=== PATIENT | female | born 1965 | race Caucasian/White ===

== ENCOUNTER 2020-04-23 06:13 | Emergency (ER) | payer OTHER ==
[2020-04-23] MEDS ORDERED: Ondansetron 4 MG/2 ML SDV IVPUSH ONE ×2 (06:55→10:21)
[2020-04-23] MEDS ORDERED: fentaNYL 100 MCG/2 ML SDV IVPUSH ONE (06:55)
[2020-04-23] MEDS ORDERED: Sodium Chloride 0.9% 1,000 ML IV ONE (06:55)
--- NOTE | 2020-04-23 07:04 | EDM.PDOC ---
<Brain Wolff - Last Filed: 04/23/20 06:54> ED HPI GENERAL MEDICAL PROBLEM - General Chief Complaint: Abdominal Pain Stated Complaint: ABDOMINAL PAIN VOMITING Time Seen by Provider: 04/23/20 06:44 - History of Present Illness INITIAL COMMENTS - FREE TEXT/NARRATIVE: 54-year-old female presents to the emergency room with abdominal pain. Patient developed severe nausea vomiting and abdominal discomfort over the last 10 hours or so. The patient does have an underlying history of Crohn's disease which usually does not cause nausea or vomiting for just lots of diarrhea. Her Crohn's has been doing fairly well she is on Humira. She is not eaten anything that she thought might of been suspect. The other people camping with her have eaten the same food and nobody else has become ill. Not aware of any fevers or chills. Prior to this she has been having several loose stools a day this is typical for her with her Crohn's. She is vomited multiple times through the evening but now is just bringing up small amounts of bilious material. Epigastric Pain Score (Numeric/FACES): 10 - Related Data Allergies Allergy/AdvReac Type Severity Reaction Status Date / Time codeine Allergy Cannot Verified 04/23/20 06:24 Remember Sulfa (Sulfonamide Allergy Cannot Verified 04/23/20 06:24 Antibiotics) Remember Home Meds: Home Meds Adalimumab [Humira] 1 dose INJECT ASDIRECTED 04/23/20 [History] Omeprazole Magnesium [Prilosec Otc] 20 mg PO DAILY 04/23/20 [History] Past Medical History Gastrointestinal History: Reports: Other (See Below) Other Gastrointestinal History: Crohn's disease - Past Surgical History GI Surgical History: Reports: Other (See Below) Other GI Surgeries/Procedures: bowel resection Social & Family History - Tobacco Use Smoking Status *Q: Never Smoker Second Hand Smoke Exposure: No - Caffeine Use Caffeine Use: Reports: Coffee - Recreational Drug Use Recreational Drug Use: No ED ROS GENERAL - Review of Systems Review Of Systems: See Below Constitutional: Reports: No Symptoms HEENT: Reports: No Symptoms Respiratory: Reports: No Symptoms Cardiovascular: Reports: No Symptoms GI/Abdominal: Reports: Abdominal Pain, Diarrhea, Nausea, Vomiting ED EXAM, GI/ABD - Physical Exam Exam: See Below Exam Limited By: No Limitations General Appearance: Alert, No Apparent Distress Head: Atraumatic, Normocephalic Neck: Normal Inspection, Supple, Non-Tender, Full Range of Motion. No: Lymphadenopathy (L), Lymphadenopathy (R) Respiratory/Chest: No Respiratory Distress, Lungs Clear, Normal Breath Sounds Cardiovascular: Regular Rate, Rhythm, No Edema, No Murmur GI/Abdominal Exam: Normal Bowel Sounds, Soft, Other (She has diffuse tenderness with palpation no localizing symptoms no rigidity rebound or guarding) Back Exam: Normal Inspection. No: CVA Tenderness (L), CVA Tenderness (R) Neurological: Alert, Oriented, Normal Cognition Departure - Departure Disposition: Home, Self-Care 01 Clinical Impression: Small bowel obstruction, History of Crohn's disease - Discharge Information Instructions: Bowel Obstruction, [id number] Referrals: PCP,Not In Area [Primary Care Provider] - Forms: ED Department Discharge Additional Instructions: Evaluation in the emergency room this morning in regards to development of diffuse abdominal pain with nausea and vomiting. History of Crohn's disease which has been relatively well controlled with Humira for the last 10 years. Test revealed a mildly elevated white blood cell count with a left shift. No major electrolyte abnormalities or abnormalities of the kidneys or liver were identified. There was some evidence of volume depletion and this is secondary to fluid accumulation within the bowel and the abdominal cavity. X-ray of the abdomen showed 1 dilated loop of small bowel in the left upper quadrant or mid abdomen suggestive of an ileus. CT of the abdomen was performed with oral and IV contrast and reveals evidence of small bowel obstruction with termination of the dilated bowel in the right lower quadrant at site of previous surgery. It is possible that the [place] muscles where the bowel was re-joint back together has narrowed enough to cause small bowel obstruction development. It is more likely to be due to internal scars called adhesions to have caused this problem. Decision has been made to travel back to [facility] where you were from for definitive medical care versus being admitted to a larger center such as [facility] for care at this time. Suggest only ice chips along the way nothing to eat or drink otherwise. Zofran 4 mg under the tongue every 4 hours as needed for relief of nausea or vomiting. Percocet tabs 5/325 mg 1 or 2 tablets with Zofran under the tongue 15 minutes prior to prevent vomiting from the pain pills. May take with a sip of water or ice chips. Just traveling to hospital in [facility] as soon as you reach that destination for planned admission to the hospital due to small bowel obstruction. Of course if things get out of control in route you can stop at 1 of the major cities such as [facility] or [place] for definitive treatment if necessary. Sepsis Event Note (ED) - Evaluation Sepsis Screening Result: No Definite Risk <Michael Duarte - Last Filed: 04/23/20 10:35> ED HPI GENERAL MEDICAL PROBLEM - History of Present Illness Onset: Gradual Onset Date: 04/22/20 Onset Time: 18:00 Duration: Hour(s):, Getting Worse Location: Reports: Abdomen (Abdominal pain primarily supraumbilical but pressure along the lower abdomen as well. Pain has a very strong colicky component.) Quality: Reports: Ache, Sharp, Stabbing Severity: Moderate (Sharp and stabbing colicky abdominal pain) Improves with: Reports: None ( at a 10) Worsens with: Reports: None Associated Symptoms: Reports: Fever/Chills, Loss of Appetite, Nausea/Vomiting (Chills but no fever). 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 They reside in [facility] [place] - Vital Signs Last Recorded V/S: Last Vital Signs Temp 36.2 C 04/23/20 06:21 Pulse 77 04/23/20 06:21 Resp 18 04/23/20 06:21 BP 145/93 H 04/23/20 06:21 Pulse Ox 99 04/23/20 06:21 - Orders/Labs/Meds Orders: Active Orders 24 hr Category Date Time Status CORONAVIRUS COVID-19 PCR [facility] Stat Lab 04/23/20 08:30 Received Dextrose 5%-Lactated Ringers 1,000 ml Med 04/23/20 08:15 Active IV ASDIRECTED Sodium Chloride 0.9% [Saline Flush] Med 04/23/20 08:49 Active 10 ml FLUSH ONETIME PRN Medication Orders Dextrose/Lactated Ringer's (Dextrose 5%-Lactated Ringers) 1,000 mls @ 150 mls/hr IV ASDIRECTED LAURA Last Admin: 04/23/20 08:36 Dose: 150 mls/hr Documented by: LU Sodium Chloride (Saline Flush) 10 ml FLUSH ONETIME PRN PRN Reason: IV FLUSH Last Admin: 04/23/20 09:52 Dose: 10 ml Documented by: AUGUSTO Labs: Laboratory Tests 04/23/20 04/23/20 04/23/20 Range/Units 06:45 06:45 06:45 WBC 11.41 H (3.98-10.04) K/mm3 RBC 5.24 H (3.98-5.22) M/mm3 Hgb 16.0 H (11.2-15.7) gm/dl Hct 48.3 H (34.1-44.9) % MCV 92.2 (79.4-94.8) fl MCH 30.5 (25.6-32.2) pg MCHC 33.1 (32.2-35.5) g/dl RDW Std Deviation 45.3 (36.4-46.3) fL Plt Count 295 (182-369) K/mm3 MPV 10.0 (9.4-12.3) fl Neut % (Auto) 91.0 H (34.0-71.1) % Lymph % (Auto) 6.6 L (19.3-51.7) % [place] % (Auto) 2.1 L (4.7-12.5) % Eos % (Auto) 0 L (0.7-5.8) Baso % (Auto) 0.2 (0.1-1.2) % Neut # (Auto) 10.39 H (1.56-6.13) K/mm3 Lymph # (Auto) 0.75 L (1.18-3.74) K/mm3 [place] # (Auto) 0.24 (0.24-0.36) K/mm3 Eos # (Auto) 0.00 L (0.04-0.36) K/mm3 Baso # (Auto) 0.02 (0.01-0.08) K/mm3 Manual Slide Review Abnormal smear ESR (0-20) mm/hr Sodium 142 (136-145) mEq/L Potassium 3.9 (3.5-5.1) mEq/L Chloride 104 (98-107) mEq/L Carbon Dioxide 25 (21-32) mEq/L Anion Gap 16.9 H (5-15) BUN 14 (7-18) mg/dL Creatinine 1.0 (0.55-1.02) mg/dL Est Cr Clr Drug Dosing 58.90 mL/min Estimated GFR (MDRD) 58 (>60) mL/min BUN/Creatinine Ratio 14.0 (14-18) Glucose 128 H (74-106) mg/dL Calcium 9.9 (8.5-10.1) mg/dL Total Bilirubin 0.5 (0.2-1.0) mg/dL AST 22 (15-37) U/L ALT 30 (14-59) U/L Alkaline Phosphatase 108 (46-116) U/L C-Reactive Protein (<1.0) mg/dL Total Protein 9.1 H (6.4-8.2) g/dl Albumin 4.6 (3.4-5.0) g/dl Globulin 4.5 gm/dL Albumin/Globulin Ratio 1.0 (1-2) Lipase 151 (73-393) U/L Urine Color Yellow (Yellow) Urine Appearance Slt cloudy H (Clear) Urine pH 5.5 (5.0-8.0) Ur Specific [place] > or = 1.030 (1.005-1.030) Urine Protein 1+ H (Negative) Urine Glucose (UA) Negative (Negative) Urine Ketones 2+ H (Negative) Urine Occult Blood 1+ H (Negative) Urine Nitrite Negative (Negative) Urine Bilirubin 1+ H (Negative) Urine Urobilinogen 0.2 (0.2-1.0) Ur Leukocyte Esterase Negative (Negative) Urine RBC 5-10 H (0-5) /hpf Urine WBC 0-5 (0-5) /hpf Ur Squamous Epith Cells 5-10 H (0-5) /hpf Amorphous Sediment Many H (NOT SEEN) /hpf Urine Bacteria Few (FEW) /hpf Urine Mucus Rare (FEW) /hpf 04/23/20 04/23/20 Range/Units 06:45 06:45 WBC (3.98-10.04) K/mm3 RBC (3.98-5.22) M/mm3 Hgb (11.2-15.7) gm/dl Hct (34.1-44.9) % MCV (79.4-94.8) fl MCH (25.6-32.2) pg MCHC (32.2-35.5) g/dl RDW Std Deviation (36.4-46.3) fL Plt Count (182-369) K/mm3 MPV (9.4-12.3) fl Neut % (Auto) (34.0-71.1) % Lymph % (Auto) (19.3-51.7) % [place] % (Auto) (4.7-12.5) % Eos % (Auto) (0.7-5.8) Baso % (Auto) (0.1-1.2) % Neut # (Auto) (1.56-6.13) K/mm3 Lymph # (Auto) (1.18-3.74) K/mm3 [place] # (Auto) (0.24-0.36) K/mm3 Eos # (Auto) (0.04-0.36) K/mm3 Baso # (Auto) (0.01-0.08) K/mm3 Manual Slide Review ESR 3 (0-20) mm/hr Sodium (136-145) mEq/L Potassium (3.5-5.1) mEq/L Chloride (98-107) mEq/L Carbon Dioxide (21-32) mEq/L Anion Gap (5-15) BUN (7-18) mg/dL Creatinine (0.55-1.02) mg/dL Est Cr Clr Drug Dosing mL/min Estimated GFR (MDRD) (>60) mL/min BUN/Creatinine Ratio (14-18) Glucose (74-106) mg/dL Calcium (8.5-10.1) mg/dL Total Bilirubin (0.2-1.0) mg/dL AST (15-37) U/L ALT (14-59) U/L Alkaline Phosphatase (46-116) U/L C-Reactive Protein 0.4 (<1.0) mg/dL Total Protein (6.4-8.2) g/dl Albumin (3.4-5.0) g/dl Globulin gm/dL Albumin/Globulin Ratio (1-2) Lipase (73-393) U/L Urine Color (Yellow) Urine Appearance (Clear) Urine pH (5.0-8.0) Ur Specific [place] (1.005-1.030) Urine Protein (Negative) Urine Glucose (UA) (Negative) Urine Ketones (Negative) Urine Occult Blood (Negative) Urine Nitrite (Negative) Urine Bilirubin (Negative) Urine Urobilinogen (0.2-1.0) Ur Leukocyte Esterase (Negative) Urine RBC (0-5) /hpf Urine WBC (0-5) /hpf Ur Squamous Epith Cells (0-5) /hpf Amorphous Sediment (NOT SEEN) /hpf Urine Bacteria (FEW) /hpf Urine Mucus (FEW) /hpf Meds: Medications Generic Name Dose Route Start Last Admin Trade Name Freq PRN Reason Stop Dose Admin Dextrose/Lactated Ringer's 1,000 mls @ 150 mls/hr 04/23/20 08:15 04/23/20 08:36 Dextrose 5%-Lactated Ringers IV 150 mls/hr ASDIRECTED LAURA Administration Sodium Chloride 10 ml 04/23/20 08:49 04/23/20 09:52 Saline Flush FLUSH 10 ml ONETIME PRN Administration IV FLUSH Discontinued Medications Generic Name Dose Route Start Last Admin Trade Name Freq PRN Reason Stop Dose Admin Diatrizoate Meglum/Diatrizoate Sod 120 ml 04/23/20 08:49 04/23/20 09:52 Gastrografin 37% PO 04/23/20 08:50 45 ml ONETIME ONE Administration Diphenhydramine HCl 12.5 mg 04/23/20 09:32 04/23/20 09:39 Benadryl IVPUSH 04/23/20 09:33 12.5 mg ONETIME ONE Administration Fentanyl 50 mcg 04/23/20 06:55 04/23/20 07:06 Sublimaze IVPUSH 04/23/20 06:56 50 mcg ONETIME ONE Administration Hydromorphone HCl 0.5 mg 04/23/20 07:42 04/23/20 07:51 Dilaudid IVPUSH 04/23/20 07:43 0.5 mg ONETIME ONE Administration Hydromorphone HCl 0.5 mg 04/23/20 10:21 Dilaudid IVPUSH 04/23/20 10:22 ONETIME ONE Sodium Chloride 1,000 mls @ 999 mls/hr 04/23/20 06:55 04/23/20 07:05 Normal Saline IV 04/23/20 07:55 999 mls/hr ONETIME ONE Administration Iopamidol 100 ml 04/23/20 08:49 04/23/20 09:52 Isovue-300 (61%) IVPUSH 04/23/20 08:50 100 ml ONETIME ONE Administration Metoclopramide HCl 7.5 mg 04/23/20 09:32 04/23/20 09:39 Reglan IVPUSH 04/23/20 09:33 7.5 mg ONETIME ONE Administration Ondansetron HCl 4 mg 04/23/20 06:55 04/23/20 07:05 Zofran IVPUSH 04/23/20 06:56 4 mg ONETIME ONE Administration Ondansetron HCl 4 mg 04/23/20 10:21 04/23/20 10:31 Zofran IVPUSH 04/23/20 10:22 4 mg ONETIME ONE Administration - Radiology Interpretation Free Text/Narrative:: 54-year-old female presents to the ED with diffuse upper abdominal pain although she has generalized abdominal pain most of the pain is supraumbilical. She reports pain comes in waves I strong colicky component to the pain. Associated intractable nausea and vomiting of bilious material. Her bowel movements have been more formed up the last 2 weeks prior to that for the last month they have been quite loose and diarrhea. No blood noted. She was diagnosed with Crohn's disease about 10 years ago although she believes she had the disease process for a good 5 or 6 years before diagnosis was made. She has had partial small bowel resection she believes 18 inches of her ileum was removed. She has not had a colostomy. No recent changes in any medications. She has been on Humira subcutaneous injections for greater than 5 years with fairly good relief of her symptoms. Associated chills but no defined fever.She does not drink alcohol. Care assumed from Dr. Wolff at change of shift. Still having a good deal of upper abdominal pain which comes in a colicky fashion. Labs are pending. Plan KUB to be done. Given Dilaudid 0.5 mg IV for further pain relief. Will likely require CT of the abdomen with oral contrast. - Re-Assessments/Exams Free Text/Narrative Re-Assessment/Exam: 04/23/20 07:47 White count is mildly elevated at 11.41. Differential is 91% neutrophils. Hemoglobin is 16.0 with hematocrit of 48.3 suggesting some degree of hemoconcentration. Platelet count is 295,000. The micro does not show any bands cells. Sodium 142 with a potassium of 3.9. Chloride 104 with a bicarb of 25. Anion gap is elevated at 16.9. BUN is 14 with a creatinine of 1.0. Glucose 128. Calcium 9.9 liver function is normal. Total protein is elevated at 9.1 albumin fraction is 4.6. Lipase is normal at 151. Urinalysis shows slightly cloudy urine with 1+ proteinuria and 2+ ketones. 1+ occult blood. 1+ bilirubin. There are 5-10 RBCs per high-power field no white cells identified 5-10 squamous epithelial cells and many amorphous sediment 04/23/20 08:20 KUB reveals a solitary minimally dilated loop of small bowel left upper quadrant. This may be related to possible developing ileus due to underlying inflammatory process. No air-fluid levels to suggest obstruction. There is increased stool in the cecum and distal portion of the right hemicolon. She has an IUD placed in her uterus. Its of previous abdominal surgery with surgical clips right lower quadrant . 04/23/20 08:35 patient believes she will be able to keep down some contrast and is willing to give it a try. We will try and perform CT of the abdomen and pelvis with oral and IV contrast. 04/23/20 09:33 patient is having more nausea since ingesting oral contrast material. We will give her Zofran 7.5 mg IV with Benadryl 12.5 mg IV to prevent any dystonic reaction with the Zofran she had received previous. 04/23/20 10:21 CT of the abdomen and pelvis has been completed. Small low- density lesion is noted anteriorly within the right lobe of the liver which most likely represents a small liver cyst measuring 1.0 cm in size. Small higher hiatal hernia is appreciated. Spleen appears to be normal. Pancreas shows no discrete abnormalities. Adrenal glands show no nodules. Gallbladder contains no calcified gallstones. Kidneys show symmetric contrast enhancement without hydronephrosis or mass. Mid and distal small bowel is dilated and contains fluid. Stool is noted within the terminal ileum. Previous surgery noted at the ileocecal junction. There may be a focal area of narrowing at the anastomotic site causing the small bowel dilatation as well as the fecal containing terminal ileum. Small amount of fluid is seen within the pelvis as well as around the liver and spleen which mos t likely is reactive from the small bowel dilatation or due to adnexal or ovarian cyst rupture. Incidental IUD noted within the uterus. Delayed images show contrast within the distal ureters as well as contrast within the bladder. I have discussed the findings of the CT which confirm developing small bowel obstruction with numerous dilated loops of small bowel down into the pelvis where appears to terminate. It is most likely obstructed due to adhesions from previous small bowel resection. There is no obvious thickening of the wall of the small bowel to suggest inflammation related to Crohn's disease. After discussion with both her and her they opted to travel back to [facility] which is an [address] and be hospitalized there versus being admitted to [facility] for care. If things worsen along the way they can of course stop and the larger center to be admitted. Copy of the CT will be placed on CD ROM. Copies of chart notes and labs will be sent with the patient. [employer] machine utilized for Zofran sublingual 4 mg every 4 hours as necessary and she may use ice chips only. Percocet tabs 5 325 mg 1 or 2 every 4-6 hours necessary for pain relief if they will stay down. Departure - Departure Time of Disposition: 10:25 Condition: Fair - Discharge Information *PRESCRIPTION DRUG MONITORING PROGRAM REVIEWED*: Not Applicable *COPY OF PRESCRIPTION DRUG MONITORING REPORT IN PATIENT WENDY: Not Applicable Sepsis Event Note (ED) - Focused Exam Vital Signs: Vital Signs Temp Pulse Resp BP Pulse Ox 04/23/20 06:21 36.2 C 77 18 145/93 H 99 - My Orders Last 24 Hours: My Active Orders 04/23/20 08:15 Dextrose 5%-Lactated Ringers 1,000 ml IV ASDIRECTED 04/23/20 08:30 CORONAVIRUS COVID-19 PCR PHL Stat 04/23/20 08:49 Sodium Chloride 0.9% [Saline Flush] 10 ml FLUSH ONETIME PRN - Assessment/Plan Last 24 Hours: My Active Orders 04/23/20 08:15 Dextrose 5%-Lactated Ringers 1,000 ml IV ASDIRECTED 04/23/20 08:30 CORONAVIRUS COVID-19 PCR PHL Stat 04/23/20 08:49 Sodium Chloride 0.9% [Saline Flush] 10 ml FLUSH ONETIME PRN
[2020-04-23] MEDS ORDERED: HYDROmorphone 0.5 MG/0.5 ML Syringe IVPUSH ONE ×2 (07:42→10:21)
[2020-04-23] MEDS ORDERED: Dextrose 5%-Lactated Ringers 1,000 ML IV SCH (08:15)
[2020-04-23] MEDS ORDERED: Iopamidol 612 MG/ML 100 ML Bottle IVPUSH ONE (08:49)
[2020-04-23] MEDS ORDERED: Diatrizoate Meglumine/Diatrizoate Sodium 37% 120 ML Bottle PO ONE (08:49)
[2020-04-23] MEDS ORDERED: Sodium Chloride 0.9% 10 ML Syringe FLUSH PRN (08:49)
--- NOTE | 2020-04-23 08:50 | CR ---
Abdomen: Supine view of the abdomen was obtained. Comparison: No previous study. Single slightly prominent loop of small bowel is noted which may relate to a localized ileus. Surgical material is seen within the right abdomen. IUD is noted within the pelvis. Bony structures are unremarkable. Impression: 1. Single slightly prominent loop of small bowel possibly relating to localized ileus from underlying inflammatory process. 2. Previous abdominal surgery and IUD. 3. No additional abnormality is seen. Diagnostic code #3 This report was dictated in MDT
[2020-04-23] MEDS ORDERED: Metoclopramide 10 MG/2 ML SDV IVPUSH ONE (09:32)
[2020-04-23] MEDS ORDERED: diphenhydrAMINE 50 MG/ML SDV IVPUSH ONE (09:32)
--- NOTE | 2020-04-23 10:22 | CT ---
CT abdomen and pelvis Technique: Multiple axial sections were obtained from above the dome of the diaphragm inferiorly through the pubic symphysis. Intravenous contrast was utilized. No oral contrast has been given. Delayed images were obtained through the pelvis. Comparison: Prior abdominal x-ray performed earlier on the same day (7:57 AM). Findings: Visualized lung bases show nothing acute. Small low-density lesion is noted anteriorly within the right lobe of the liver which most likely represents a small liver cyst measuring 1.0 cm in size. No additional abnormality is appreciated within the liver. Small hiatal hernia is noted. Spleen appears within normal limits. Pancreas shows no discrete abnormality. Adrenal glands contain no nodule. Gallbladder contains no calcified gallstones. Kidneys show symmetric contrast enhancement without hydronephrosis or mass. Mid and distal small bowel is dilated and contains fluid. Stool is noted within the terminal ileum. Previous surgery noted at the ileocecal junction. There may be a focal area of narrowing at the anastomotic site causing the small bowel dilatation as well as the fecal-containing terminal ileum. Small amount of fluid is seen within the pelvis as well as around the liver and spleen which most likely is reactive from the small bowel dilatation or due to adnexal or ovarian cyst rupture. No free fluid or inflammatory change is appreciated. Bone window settings were reviewed which show no acute osseous finding. Delayed images show contrast within the distal ureters as well as contrast within the bladder. Incidental IUD noted within the uterus. Impression: 1. Mid and distal small bowel dilatation with stool seen within the distal terminal ileum. These findings may relate to an area of stenosis at the ileocecal junction an area of prior surgery. Findings could also relate to minimal focal area of Crohn's disease. 2. Small liver cyst. IUD. 3. Slight fluid within the pelvis as well as minimal fluid around the liver and spleen. This may be reactive from the small bowel process as well as possibly due to nonvisualized adnexal or ovarian cyst rupture. 4. No other acute finding is seen. Diagnostic code #3 This report was dictated in MDT
== END 2020-04-23 11:01 | disposition home or self-care (01) ==
LOC: JD.ED 06:13
DX: K56.609 Unspecified intestinal obstruction, unspecified as to partial versus complete obstruction (principal); Z87.19 Personal history of other diseases of the digestive system; Z88.5 Allergy status to narcotic agent; Z88.2 Allergy status to sulfonamides; Z79.899 Other long term (current) drug therapy
CPT/HCPCS: 36415; 74018; 74177; 80053; 81001; 83690; 85025; 85652; 86140; 87635; 96361; 96374; 96375; 96376; 99284; J1170; J1200; J2405; J2765; J3010; J7030; J7121; Q9963; Q9967; U0002